=== PATIENT | female | born 1995 | race African-American/Black ===

== ENCOUNTER 2019-07-28 10:41 | Emergency (ER) | payer MEDICAID ==
[~2019-07-28] VITALS: Ht 160 cm; Wt 81.6 kg
--- NOTE | 2019-07-28 10:43 | NUR ---
PT BIBA BLS TO ER BED 3
[2019-07-28 10:46] VITALS: BP 121/84
--- NOTE | 2019-07-28 10:54 | NUR ---
DR. OROZCO BEDSIDE EVALUATING PT
--- NOTE | 2019-07-28 10:57 | NUR ---
PT C/O LUQ PAIN THAT STARTED AT 0700 TODAY. PT VOMITTED X3, DIARRHEA X4 TODAY. INTERMITTENT 10/10 SHARP PAIN. PT DENIES FEVER. C/O HEADACHE THAT STARTED AN HR AGO. PT LAYING IN BED, CALM, CRYING. VSS. LMP 1 WEEK AGO, AND IRREGULAR. MEDHX: VON [place]IL[place]BR[place] DISEASE ALLERGIES: PENICILLIN
[2019-07-28] MEDS ORDERED: KETOROLAC 30 MG/ML VIAL IVP ONE (11:00)
[2019-07-28] MEDS ORDERED: NACL 0.9% 1,000 ML IV ONE (11:00)
[2019-07-28] MEDS ORDERED: ONDANSETRON 4 MG/2 ML VIAL IVP ONE (11:00)
[2019-07-28] MEDS ORDERED: PANTOPRAZOLE 40 MG INJ VIAL IVP ONE (11:00)
[2019-07-28 11:25] LABS: BASOPHILS # (AUTO) 0.1 K/uL (0.00-0.22); BASOPHILS % (AUTO) 0.6 % (0.0-2.0); EOSINOPHILS # (AUTO) 0.1 K/uL (0-0.4); EOSINOPHILS % (AUTO) 1.2 % (0.0-4.0); HEMATOCRIT 40.9 % (36-48); HEMOGLOBIN 13.5 g/dL (12.0-16.0); LYMPHOCYTES # (AUTO) 1.4 K/uL (2.5-16.5); LYMPHOCYTES % (AUTO) 16.1 % (20.5-51.1); MEAN CORPUSCULAR HEMOGLOBIN 27 pg (27-31); MEAN CORPUSCULAR HGB CONC 33 g/dL (33-37); MEAN CORPUSCULAR VOLUME 82.2 fL (80-94); MONOCYTES # (AUTO) 0.2 K/uL (0.8-1.0); MONOCYTES % (AUTO) 2.6 % (1.7-9.3); NEUTROPHILS # (AUTO) 6.9 K/uL (1.8-7.7); NEUTROPHILS % (AUTO) 79.5 % (42.2-75.2); PLATELET COUNT (AUTO) 302 K/uL (140-450); RED BLOOD CELL COUNT(AUTO) 4.98 MIL/uL (4.20-5.40); RED CELL DISTRIBUTION WIDTH 14.7 % (11.6-13.7); WHITE BLOOD COUNT (AUTO) 8.6 K/uL (4.8-10.8)
--- NOTE | 2019-07-28 11:28 | NUR ---
PT STATES PAIN IS SUBSIDING AFTER RECEIVING MEDS
[2019-07-28 11:40] LABS: ANION GAP 14.4 (8-16); CARBON DIOXIDE 23.2 mmol/L (21-32); CREATININE 0.7 mg/dL (0.6-1.3); POTASSIUM 3.6 mmol/L (3.5-5.1); TOTAL BILIRUBIN 0.5 mg/dL (0.0-1.0)
[2019-07-28] MEDS ORDERED: MORPHINE SULFATE 2 MG/ML SYR IVP ONE ×2 (11:50→12:40)
--- NOTE | 2019-07-28 11:52 | NUR ---
PT TAKEN TO RAD VIA W/C
[2019-07-28 11:53] LABS: ALBUMIN 3.9 g/dL (3.4-5.0)
[2019-07-28] MEDS ORDERED: DICYCLOMINE HCL LIQUID 10 MG/5 ML UDC PO ONE (12:40)
[2019-07-28 13:21] VITALS: BP 133/86
== END 2019-07-28 13:25 | disposition home or self-care (01) ==
LOC: MED 10:41
DX: K56.7 Ileus, unspecified (principal); K52.9 Noninfective gastroenteritis and colitis, unspecified; D68.0 Von Willebrand disease; Z88.0 Allergy status to penicillin
CPT/HCPCS: 36415; 74022; 80053; 81002; 81025; 83690; 85025; 96361; 96374; 96375; 96376; 99284; C9113; J1885; J2270; J2405; J7030

== ENCOUNTER 2020-01-30 09:16 | Emergency (ER) | payer MEDICAID, OTHER ==
[~2020-01-30] VITALS: Ht 160 cm; Wt 87.1 kg
[2020-01-30 09:28] VITALS: BP 134/82
[2020-01-30] MEDS ORDERED: KETOROLAC 60 MG/2 ML VIAL IM ONE (09:50)
--- NOTE | 2020-01-30 10:15 | NUR ---
IGHT HIP PAIN X 1 DAY. 09/05, SHARP PAIN PT ADMITS TO CARRYING HEAVY LAUNDRY BAGS UP AND DOWN THE STAIRS +NUMBESS, -WEAKNESS TOOK TYLENOL @830PM LAST NIGHT, PT AWAKE , ALERT, AFIBRILE AMBULATORY WITH PAIN ON RT HIP 07/06 NEGATIVE NEURO DEFICIT. PMH: ECLAMPSIA (2018), SCIATICA (2017), VWD MEDs: OCP ALLERGY: PENICILLIN
--- NOTE | 2020-01-30 11:27 | NUR ---
Patient discharged with v/s stable. Written and verbal after care instructions given and explained regarding hip pain. Patient alert, oriented and verbalized understanding of instructions. Ambulatory with steady gait. All questions addressed prior to discharge. ID band removed. Patient advised to follow up with PMD. Rx of tramadol and tylenol extra strenght given. Patient educated on indication of medication including possible reaction and side effects. Opportunity to ask questions provided and answered.
[2020-01-30 11:35] VITALS: BP 130/80
== END 2020-01-30 11:27 | disposition home or self-care (01) ==
LOC: MED 09:16
DX: M25.551 Pain in right hip (principal); Z88.0 Allergy status to penicillin
CPT/HCPCS: 81002; 81025; 99283; J1885; 96372

== ENCOUNTER 2021-05-24 14:49 | Emergency (ER) | payer OTHER ==
[~2021-05-24] VITALS: Ht 160 cm; Wt 93.0 kg
[2021-05-24 14:52] VITALS: BP 144/105
--- NOTE | 2021-05-24 15:03 | NUR ---
PT AMBULATED TO BED 02
--- NOTE | 2021-05-24 15:15 | NUR ---
YAW Tejada is evaluating patient at bedside.
--- NOTE | 2021-05-24 15:19 | NUR ---
26 y/o F BIB self from home with c/c cold-like symptoms. Patient A&Ox4, ambulatory, reports cough since this morning with associated runny nose, headache, SOB, body aches, and loss of appetite. Patient states her chest hutrs upon inhalation. States cough productive with little phelgm. Patient denies any blood, N/V/D, constipation, abdominal pain, dizziness, blurry vision, syncope. Pt denies any medications prior to arrival. Pt placed into a gown. SpO2 100% on room air; RR even/unlabored. Bed locked in lowest position, side rails x 1, call light in reach. PMH: Blood disorder Allergies: PCN, ASA Sx: 2019
--- NOTE | 2021-05-24 15:25 | NUR ---
RAD at bedside.
[2021-05-24] MEDS ORDERED: KETOROLAC 30 MG/ML VIAL IM ONE (16:00)
--- NOTE | 2021-05-24 16:19 | NUR ---
Patient refused IM medication; YAW Tejada made aware. New orders to be placed.
[2021-05-24] MEDS ORDERED: NAPR-54 PO (16:20)
[2021-05-24] MEDS ORDERED: PROM118S5 PO (16:20)
[2021-05-24] MEDS ORDERED: AZIT250T4 PO (16:20)
[2021-05-24] MEDS ORDERED: NAPROXEN 500 MG TAB PO SCH (16:20)
[2021-05-24] MEDS ORDERED: ALBU0.0912 IH (16:20)
--- NOTE | 2021-05-24 17:10 | NUR ---
Patient states positive relief after medication; 0/10.
[2021-05-24 17:11] VITALS: BP 138/95
--- NOTE | 2021-05-24 17:11 | NUR ---
Patient discharged with v/s stable. Written and verbal after care instructions given and explained. Patient alert, oriented and verbalized understanding of instructions. Ambulatory with steady gait. All questions addressed prior to discharge. ID band removed. Patient advised to follow up with PMD. Rx of lbuterol Sulfate, Azithromycin, Naproxen, Promethazine/Dextromethorphan given. Patient educated on indication of medication including possible reaction and side effects. Opportunity to ask questions provided and answered.
== END 2021-05-24 17:11 | disposition home or self-care (01) ==
LOC: MED 14:49
DX: J20.9 Acute bronchitis, unspecified (principal); F17.210 Nicotine dependence, cigarettes, uncomplicated; Z88.0 Allergy status to penicillin; Z79.899 Other long term (current) drug therapy; Z98.890 Other specified postprocedural states
CPT/HCPCS: 71045; 99283; J1885

== ENCOUNTER 2021-08-18 12:17 | Emergency (ER) | payer OTHER, SELFPAY ==
[~2021-08-18] VITALS: Ht 160 cm; Wt 96.2 kg
[~2021-08-18 12:17] MED LIST: ALBU0.0912 IH; AZIT250T4 PO; NAPR-54 PO; PROM118S5 PO
[2021-08-18 12:31] VITALS: BP 142/91
[2021-08-18] MEDS ORDERED: ALBU0.0912 IH (13:03)
[2021-08-18] MEDS ORDERED: PROM118S5 PO (13:03)
[2021-08-18] MEDS ORDERED: NAPR-54 PO (13:03)
--- NOTE | 2021-08-18 13:15 | NUR ---
No nursing interventions performed.
--- NOTE | 2021-08-18 13:18 | NUR ---
Patient discharged with v/s stable. Written and verbal after care instructions given and explained. Patient alert, oriented and verbalized understanding of instructions. Ambulatory with steady gait. All questions addressed prior to discharge. ID band removed. Patient advised to follow up with PMD. Rx of Albuterol, Naproxen, Promethazine-Dm Syrup given. Patient educated on indication of medication including possible reaction and side effects. Opportunity to ask questions provided and answered.
== END 2021-08-18 13:18 | disposition home or self-care (01) ==
LOC: MED 12:17
DX: J06.9 Acute upper respiratory infection, unspecified (principal); Z88.0 Allergy status to penicillin; Z79.899 Other long term (current) drug therapy
CPT/HCPCS: 99283